=== PATIENT | female | born 1990 | race African-American/Black ===

== ENCOUNTER → 2020-04-03 08:46 | Outpatient (CLI) | payer OTHER, MEDICAID, SELFPAY ==
[2020-04-03 12:57] LABS: Urine Chlamydia NOT DETECTED; Urine N gonorrhoeae NOT DETECTED
== END ==
PROVIDERS: Visit Provider Obstetrics & Gynecology
DX: Z34.81 Encounter for supervision of other normal pregnancy, first trimester (principal); Z11.3 Encounter for screening for infections with a predominantly sexual mode of transmission; Z3A.01 Less than 8 weeks gestation of pregnancy
CPT/HCPCS: 87491; 87591

== ENCOUNTER → 2020-04-26 13:18 | Outpatient (CLI) | payer OTHER, MEDICAID, SELFPAY ==
[2020-04-26 14:20] LABS: Add Manual Diff / Slide Review NO; Basophils Absolute Auto 0 /uL (0-100); Basophils Percent Auto 0.4 % (0-2); Eosinophils Absolute Auto 0 /uL (0-450); Eosinophils Percent Auto 0.7 % (2-4); Hematocrit 27.6 % (36-46); Hemoglobin 8.4 g/dL (12.0-16.0); Lymphocytes Absolute Auto 1100 /uL (1100-4500); Mean Corpuscular HGB Conc 30.6 % (30-36); Mean Corpuscular Hemoglobin 23.4 PG (26-34); Mean Corpuscular Volume 76.5 fL (80-100); Monocytes Absolute Auto 300 /uL (0-900); Monocytes Percent Auto 6.7 % (3-14); Neutrophils Absolute Auto 3600 /uL (1500-7000); Neutrophils Percent Auto 71.2 % (50-75); Platelet Count 200 X10^3/uL (150-400); Red Cell Distribution Width 16.4 % (11.6-14.8)
[2020-04-26 14:25] LABS: Hemoglobin A1C% w Est Avg Glu 5.1 % (4.0-6.0)
[2020-04-26 14:29] LABS: Aspartate Aminotransferase 21 IU/L (14-36); BUN Creatinine Ratio 18.8 (6-22); Blood Urea Nitrogen 13 mg/dL (7-17); Estimated Glomerular Filt Rate > 60.0 mL/min (>60); Uric Acid 3.1 mg/dL (2.5-6.2)
[2020-04-26 14:38] LABS: Appearance Urine UA CLEAR; Bilirubin Urine UA NEGATIVE (NEGATIVE); Color Urine UA YELLOW; Glucose Urine UA NEGATIVE (Negative); Ketones Urine UA NEGATIVE (NEGATIVE); Leukocyte Esterase Urine UA NEGATIVE (NEGATIVE); Nitrite Urine UA NEGATIVE (Negative); Occult Blood Urine UA NEGATIVE (Negative); Protein Urine UA NEGATIVE (Negative); Specific Gravity Urine UA 1.025 (1.000-1.035); Urobilinogen Urine UA 0.2 E.U./dL (0.2)
[2020-04-26 14:42] LABS: pH Urine UA 5.5 (4.5-8.0)
[2020-04-26 15:22] LABS: Creatinine Urine Random 266.5 mg/dL; Protein (Total) Urine Random 6 mg/dL (0-12); Protein Creatinine Ratio Urine 0.02 GRAM/24H
[2020-04-27 04:40] LABS: RPR Screen Non Reactive (Non Reactive)
[2020-04-27 06:36] LABS: Varicella IgG Antibody 782 index (Immune >165)
[2020-04-29 15:35] LABS: Hepatitis B Surface Antigen NEGATIVE s/c (NEGATIVE); Rubella Antibody IgG 19.1 IU/mL (>15)
[2020-04-29 15:54] LABS: HIV 1 & 2 Ab/Ag 4th Gen Combo NEGATIVE (NEGATIVE); Hep C Virus Ab w/Reflex Quant NEGATIVE s/c (NEGATIVE)
== END ==
PROVIDERS: Referring Provider Obstetrics & Gynecology; Visit Provider Obstetrics & Gynecology
DX: Z34.90 Encounter for supervision of normal pregnancy, unspecified, unspecified trimester (principal)
CPT/HCPCS: 36415; 80055; 81003; 82570; 83036; 84156; 84450; 84550; 85025; 86787; 86803; 86850; 86900; 86901; 87086; 87389

== ENCOUNTER → 2020-04-30 08:33 | Outpatient (CLI) | payer OTHER, MEDICAID, SELFPAY ==
[2020-04-30 09:48] LABS: HEMOLYSIS < 15 (0-50); Iron 33 ug/dL (37-170)
[2020-04-30 09:49] LABS: Calcium 9.4 mg/dL (8.4-10.2)
[2020-04-30 09:59] LABS: Percent Iron Saturation 9 % (15-50); Total Iron Binding Capacity 352 ug/dL (265-497); Transferrin 267 mg/dL (206-381)
[2020-04-30 10:04] LABS: Vitamin D 25 Hydroxy (D3) 31.2 ng/mL (30.0-100.0)
[2020-04-30 10:56] LABS: Folate 15.5 ng/mL (2.76-20.0); Vitamin B12 236 pg/mL (239-931)
[2020-05-03 09:09] LABS: Vitamin B1 81.5 nmol/L (66.5-200.0)
== END ==
PROVIDERS: Referring Provider Obstetrics & Gynecology; Visit Provider Obstetrics & Gynecology
DX: Z34.90 Encounter for supervision of normal pregnancy, unspecified, unspecified trimester (principal); Z98.84 Bariatric surgery status
CPT/HCPCS: 36415; 82306; 82310; 82607; 82746; 83021; 83540; 83550; 84425

== ENCOUNTER → 2020-05-06 12:12 | Outpatient (CLI) | payer OTHER, MEDICAID, SELFPAY | PROVIDERS: Visit Provider Obstetrics & Gynecology | DX: Z34.81 Encounter for supervision of other normal pregnancy, first trimester (principal); R31.9 Hematuria, unspecified; Z3A.11 11 weeks gestation of pregnancy | CPT/HCPCS: 87077; 87086 ==

== ENCOUNTER → 2020-06-28 13:57 | Outpatient (CLI) | payer OTHER, MEDICAID, SELFPAY ==
[2020-06-28 16:43] LABS: Add Manual Diff / Slide Review NO; Basophils Absolute Auto 0 /uL (0-100); Basophils Percent Auto 0.4 % (0-2); Eosinophils Absolute Auto 100 /uL (0-450); Eosinophils Percent Auto 0.9 % (2-4); Hematocrit 24.5 % (36-46); Hemoglobin 7.7 g/dL (12.0-16.0); Lymphocytes Absolute Auto 1200 /uL (1100-4500); Lymphocytes Percent Auto 21.7 % (25-40); Mean Corpuscular HGB Conc 31.5 % (30-36); Mean Corpuscular Hemoglobin 23.6 PG (26-34); Monocytes Absolute Auto 300 /uL (0-900); Monocytes Percent Auto 5.8 % (3-14); Neutrophils Absolute Auto 4100 /uL (1500-7000); Neutrophils Percent Auto 71.2 % (50-75); Platelet Count 170 X10^3/uL (150-400); Red Blood Cell Count 3.27 X10^6/uL (4.0-5.2); Red Cell Distribution Width 16.7 % (11.6-14.8); White Blood Cell Count 5.7 X10^3/uL (4.5-11.0)
[2020-06-28 19:41] LABS: Vitamin B12 200 pg/mL (239-931)
[2020-07-02 21:13] LABS: Gest Age on Col Date 19.3 weeks (.); Insulin Dep Diabetes No (.); OSBR Risk 1IN 10000 (.); Results Report (.); Test Results *Screen Negative* (.)
[2020-07-03 13:30] LABS: PDF SEE EMR REFERENCE
== END ==
PROVIDERS: PCP Nurse Practitioner Family; Referring Provider Obstetrics & Gynecology; Visit Provider Obstetrics & Gynecology
DX: Z34.82 Encounter for supervision of other normal pregnancy, second trimester (principal); Z3A.15 15 weeks gestation of pregnancy
CPT/HCPCS: 36415; 82105; 82607; 85025

== ENCOUNTER → 2020-07-03 07:09 | Outpatient (CLI) | payer OTHER, MEDICAID, SELFPAY ==
--- NOTE | 2020-07-03 07:11 | DI.US.S_ITS ---
PROCEDURE: US OB >= 14 WEEKS FETUS INDICATIONS: ANATOMY OUTSIDE/PRIOR DATING DATA: Last menstrual period (LMP): February 14, 2020. LMP-based estimated date of delivery (GAGANDEEP): November 20, 2020. First dating scan (date and location): April 03, 2020 . Estimated date of delivery (GAGANDEEP) from first dating scan: November 18, 2020 . TECHNIQUE: Real-time scanning was performed of the fetus, with image documentation and biometric measurements. Endovaginal scanning: not performed. COMPARISON: [facility], , OB >= 14 WEEKS FETUS, 07/02/2020, 12:56. FINDINGS: General: A single living intrauterine gestation is present. Presentation: vertex Placenta: Placental position is anterior, without previa. Amniotic fluid index: 17.1 cm, normal range is 5-24 cm. heart rate: 139 beats per minute. Maternal cervical canal: 3.4 cm long. Normal lower limit is 2.5 cm. biometrics: Biparietal diameter: 4.9 cm, correlating with 20 weeks and 5 days Head circumference: 18.2 cm, correlating with 20 weeks and 4 days Abdominal circumference: 15.3 cm, correlating with 20 weeks and 4 days Femur length: 3.4 cm, correlating with 20 weeks and 6 days Estimated gestational age from initial scan: not applicable. Composite gestational age from present scan: 20 weeks and 5 days Estimated weight and percentile: 369 [address] which [address] the fetus within the 67th percentile based off gestational age. Measurement variability for biometric dating: +/- 7 days from 14 weeks to 15 weeks 6 days gestation, +/- 10 days from 16 weeks to 21 weeks 6 days gestation, +/- 2 weeks from 22 weeks to 27 weeks 6 days gestation, +/- 3 weeks for 28 weeks gestation or later. weight reference: 4500 g or EFW >90/95% is considered macrosomia or large for gestational age. EFW <10% is small for gestational age. EFW 5% or less is considered intra-uterine growth restriction. Anatomic survey: Neuro: Ventricles are non-dilated at less than 10 mm. Cisterna magna is normal at 3-11 mm. Cerebellum is normal in size and morphology. Nuchal skin fold: Normal at less than 6 mm between 14-21 weeks gestational age. Face: Nose and lips are normal. facial profile not well visualized secondary to positioning during the examination. Spine: No evidence for spina bifida. Heart: 4-chambered heart is present, with normal ventricular outflow tracts. Diaphragm: Diaphragm is intact. Stomach: Left-sided stomach is present. Kidneys: No hydronephrosis. Normal is less than 5 mm in 2nd trimester, less than 7 mm in 3rd trimester. Cord: 3-vessel cord has orthotopic insertion. Bladder: Normal in size. Extremities: All 4 extremities identified. IMPRESSION: 1. Single living intrauterine gestation with an estimated sonographic gestational age of approximately 20 weeks and 5 days. Estimated weight of 369 g which [address] the fetus within the 67th percentile. 2. facial profile not well visualized secondary to lie throughout the examination. Otherwise, normal routine second-trimester anatomic screening survey. Follow-up imaging is recommended to re-evaluate facial profile. Dictated by: Emmett Bates M.D. on 07/03/2020 at 13:44 Approved by: Emmett Bates M.D. on 07/03/2020 at 14:15
== END ==
PROVIDERS: Referring Provider Obstetrics & Gynecology; Visit Provider Obstetrics & Gynecology
DX: Z34.82 Encounter for supervision of other normal pregnancy, second trimester (principal); Z3A.20 20 weeks gestation of pregnancy
CPT/HCPCS: 76811

== ENCOUNTER → 2020-07-12 11:53 | Outpatient (CLI) | payer OTHER, MEDICAID, SELFPAY ==
--- NOTE | 2020-07-12 11:54 | DI.US.S_ITS ---
PROCEDURE: US OB FOLLOW UP INDICATIONS: F/U facial profile not well seen OUTSIDE/PRIOR DATING DATA: Last menstrual period (LMP): 02/14/2020. LMP-based estimated date of delivery (GAGANDEEP): 11/20/2020 . First dating scan (date and location): 04/03/2020 . Estimated date of delivery (GAGANDEEP) from first dating scan: 11/18/2020 . TECHNIQUE: Real-time scanning was performed of the fetus, with image documentation and biometric measurements. Endovaginal scanning: No COMPARISON: [facility], OB >= 14 WEEKS FETUS, 07/03/2020, 7:24. FINDINGS: General: A single living intrauterine gestation is present. Presentation: Vertex. Placenta: Placental position is anterior , without previa. Amniotic fluid index: 12.6 cm, normal range is 5-24 cm. heart rate: 131 beats per minute. Maternal cervical canal: 4.7 cm long. Normal lower limit is 2.5 cm. IMPRESSION: Single living IUP redemonstrated and today's exam demonstrating normal appearance of the facial profile. Dictated by: Nikhil JO Interpreted: Kiran Taylor MD on 07/12/2020 at 13:40 Approved by: Kiran Taylor M.D. on 07/12/2020 at 16:38
== END ==
PROVIDERS: Referring Provider Obstetrics & Gynecology; Visit Provider Obstetrics & Gynecology
DX: Z36.2 Encounter for other antenatal screening follow-up (principal); Z3A.21 21 weeks gestation of pregnancy
CPT/HCPCS: 76816

== ENCOUNTER → 2020-07-18 16:40 | Outpatient (CLI) | payer OTHER, MEDICAID, SELFPAY ==
[2020-07-18 17:05] LABS: Add Manual Diff / Slide Review NO; Basophils Absolute Auto 0 /uL (0-100); Basophils Percent Auto 0.4 % (0-2); Eosinophils Absolute Auto 100 /uL (0-450); Eosinophils Percent Auto 1.1 % (2-4); Hematocrit 23.7 % (36-46); Hemoglobin 7.3 g/dL (12.0-16.0); Lymphocytes Absolute Auto 1500 /uL (1100-4500); Lymphocytes Percent Auto 21.2 % (25-40); Mean Corpuscular HGB Conc 30.9 % (30-36); Mean Corpuscular Hemoglobin 22.5 PG (26-34); Monocytes Absolute Auto 300 /uL (0-900); Monocytes Percent Auto 4.4 % (3-14); Neutrophils Absolute Auto 5300 /uL (1500-7000); Neutrophils Percent Auto 72.9 % (50-75); Platelet Count 171 X10^3/uL (150-400); Red Blood Cell Count 3.24 X10^6/uL (4.0-5.2); Red Cell Distribution Width 17.2 % (11.6-14.8); White Blood Cell Count 7.3 X10^3/uL (4.5-11.0)
[2020-07-18 17:44] LABS: HEMOLYSIS < 15 (0-50); Iron 27 ug/dL (37-170)
[2020-07-18 17:45] LABS: Alanine Aminotransferase 9 IU/L (<35); Albumin 3.5 g/dL (3.5-5.0); Alkaline Phosphatase 69 U/L (38-126); Aspartate Aminotransferase 24 IU/L (14-36); BUN Creatinine Ratio 14.3 (6-22); Bilirubin Total 0.3 mg/dL (0.2-1.3); Blood Urea Nitrogen 8 mg/dL (7-17); Calcium 8.6 mg/dL (8.4-10.2); Carbon Dioxide 25 mmol/L (22-32); Chloride 105 mmol/L (98-107); Estimated Glomerular Filt Rate > 60.0 mL/min (>60); Globulin 3.5 g/dL (1.7-4.1); Glucose 85 mg/dL (70-100); HEMOLYSIS < 15 (0-50); Potassium 3.8 mmol/L (3.4-5.1); Sodium 136 mmol/L (137-145)
[2020-07-18 17:54] LABS: Percent Iron Saturation 7 % (15-50); Total Iron Binding Capacity 402 ug/dL (265-497); Transferrin 320 mg/dL (206-381)
[2020-07-18 18:20] LABS: Ferritin 6 ng/mL (6-137)
== END ==
PROVIDERS: Referring Provider Internal Medicine Hematology & Oncology; Visit Provider Internal Medicine Hematology & Oncology
DX: D50.9 Iron deficiency anemia, unspecified (principal); N92.6 Irregular menstruation, unspecified
CPT/HCPCS: 36415; 80053; 82728; 83540; 83550; 85025

== ENCOUNTER → 2020-08-21 07:49 | Outpatient (CLI) | payer OTHER, MEDICAID, SELFPAY ==
[2020-08-21 09:43] LABS: Hematocrit 28.3 % (36-46); Hemoglobin 8.8 g/dL (12.0-16.0)
[2020-08-21 10:20] LABS: GTT (PREG) 1 Hour PP 50gm Dose 157 mg/dL (76-139)
== END ==
PROVIDERS: Referring Provider Obstetrics & Gynecology; Visit Provider Obstetrics & Gynecology
DX: Z34.82 Encounter for supervision of other normal pregnancy, second trimester (principal); Z3A.23 23 weeks gestation of pregnancy
CPT/HCPCS: 36415; 82950; 85014; 85018

== ENCOUNTER → 2020-09-14 11:26 | Outpatient (CLI) | payer OTHER, MEDICAID, SELFPAY ==
[2020-09-14 11:49] LABS: Add Manual Diff / Slide Review NO; Basophils Absolute Auto 0 /uL (0-100); Basophils Percent Auto 0.4 % (0-2); Eosinophils Absolute Auto 0 /uL (0-450); Eosinophils Percent Auto 0.7 % (2-4); Hematocrit 28.8 % (36-46); Hemoglobin 9.2 g/dL (12.0-16.0); Lymphocytes Absolute Auto 1000 /uL (1100-4500); Lymphocytes Percent Auto 19.5 % (25-40); Mean Corpuscular HGB Conc 32.1 % (30-36); Mean Corpuscular Volume 81.1 fL (80-100); Monocytes Absolute Auto 200 /uL (0-900); Monocytes Percent Auto 4.1 % (3-14); Neutrophils Absolute Auto 3800 /uL (1500-7000); Neutrophils Percent Auto 75.3 % (50-75); Platelet Count 174 X10^3/uL (150-400); Red Blood Cell Count 3.56 X10^6/uL (4.0-5.2); Red Cell Distribution Width 23.2 % (11.6-14.8); White Blood Cell Count 5.1 X10^3/uL (4.5-11.0)
[2020-09-14 11:57] LABS: Chloride 108 mmol/L (98-107); HEMOLYSIS < 15 (0-50)
[2020-09-14 11:59] LABS: Alanine Aminotransferase 11 IU/L (<35); Albumin 3.6 g/dL (3.5-5.0); Albumin Globulin Ratio 1.1 (1.0-2.8); Alkaline Phosphatase 86 U/L (38-126); Aspartate Aminotransferase 23 IU/L (14-36); BUN Creatinine Ratio 10.8 (6-22); Bilirubin Total 0.2 mg/dL (0.2-1.3); Blood Urea Nitrogen 7 mg/dL (7-17); Carbon Dioxide 26 mmol/L (22-32); Estimated Glomerular Filt Rate > 60.0 mL/min (>60); Globulin 3.3 g/dL (1.7-4.1); Glucose 74 mg/dL (70-100); Potassium 3.5 mmol/L (3.4-5.1); Sodium 136 mmol/L (137-145); Total Protein 6.9 g/dL (6.3-8.2)
[2020-09-14 12:08] LABS: HEMOLYSIS < 15 (0-50); Iron 31 ug/dL (37-170)
[2020-09-14 12:18] LABS: Percent Iron Saturation 9 % (15-50); Total Iron Binding Capacity 336 ug/dL (265-497); Transferrin 274 mg/dL (206-381)
[2020-09-14 12:34] LABS: Ferritin 27 ng/mL (6-137)
[2020-09-14 12:46] LABS: Anisocytosis 2+; Polychromasia 1+; Spherocytes 1+
== END ==
PROVIDERS: PCP Family Medicine; Referring Provider Internal Medicine Hematology & Oncology; Visit Provider Internal Medicine Hematology & Oncology
DX: D50.9 Iron deficiency anemia, unspecified (principal)
CPT/HCPCS: 36415; 80053; 82728; 83540; 83550; 85025

== ENCOUNTER → 2020-09-18 10:54 | Outpatient (CLI) | payer OTHER, MEDICAID, SELFPAY ==
--- NOTE | 2020-09-18 12:09 | DIET.PN ---
INITIAL GESTATIONAL DIABETES ASSESSMENT ASSESS:? Ms Aviles is a 29 yof referred for Gestational diabetes. She is . She had bariatric surgery x3 yrs ago, but has not been following any dietary restrictions since her . Admits she does not like water and typically eats whatever she has at home. Generally eats fast food when she is away from home and consumes juice w/ breakfast. She has not been exercising since . She does not currently have a glucometer, but has been trying to get one for 1 month. ? GAGANDEEP:?11/20/20 ? WKS GESTATION:?? 31 wks ?LABS: 1hr 50g: >157 mg/dL ? MEDS: na ? DIET:? B: eggs w/ mcmahon; honey bunches of oats; ? bagel w/ cr chz L: fast food when out; whatever is available D: protein, veg, starch Sn: chips, honey buns, gum Note: craves chicken ? HT:? 65.5 in ? PRE-PREG WT:? 215 lb ? PRE-PREG BMI:??? 35.2 ? CURRENT WT: 264 lb ? TOTAL WT GAIN:?49 lb EXERCISE: dc after getting ; walking/dance fitness prior to NUTRITION DX 1. Altered nutrition related lab values r/t gestational diabetes as evidenced by recent labs (OGGT). INTERVENTION 1. Discussed pathophysiology of gestational diabetes and impact of hormone and nutrition/diet on blood sugar control.? Discussed fed versus non-fed state.? 2. Recommended checking fasting, pre-meal and 1hr post prandial (3x/day).? Discussed goals for glycemic control (<95 FBG, <140 1-hr PP).? 3. Discussed the effect of carbohydrates/protein/fat on blood sugar control.? Stressed importance of consistent carbohydrate intake at each meal and provided instructions for recommended servings/portions of carbohydrates/protein per meal.? Provided pt with educational material. 4. Introduced carbohydrate counting and measuring carbohydrate content via servings sizes and reading nutrition labels.? Provided handouts.? Pt will need further review. 5. Discussed importance of meal timing and not going >3 hours between meals.? Provided sample meal schedule for pt.? Pt agreeable.?? 6. Discussed importance a pre-tasneem vitamin and including food sources of calcium, vitamin D, iron and folic acid for baby and mother?s nutrition support. 7. Discussed caffeine intake. Recommend no more than 200 mg/day (1 cup coffee). 8. Discussed rule of 15 for hypoglycemia. 9. Recommend patient purchase Urine Ketone strips and instructed on use and when to contact provider. 10. Recommended patient continue exercise as appropriate per PCP approval. 11. Patient may need medication management, will follow-up with plan of care at next visit after reviewing glucose results.? MONITOR/EVAL: Will schedule follow up scheduled X 1 week after receiving glucometer. Good compliance expected. Review: carb sources, carb counting, portion size, meal timing, BG log, weight.
== END ==
PROVIDERS: Referring Provider Obstetrics & Gynecology; Visit Provider Obstetrics & Gynecology
DX: O24.419 Gestational diabetes mellitus in pregnancy, unspecified control (principal); Z3A.31 31 weeks gestation of pregnancy; Z98.84 Bariatric surgery status; Z71.3 Dietary counseling and surveillance
CPT/HCPCS: G0108

== ENCOUNTER 2020-09-23 10:24 | Outpatient (CLI) | payer OTHER, MEDICAID, SELFPAY ==
--- NOTE | 2020-09-23 17:59 | PM.OBTRLD ---
Visit Information Visit Information Date of evaluation: 09/23/20 Primary OB Provider: Kalpana Farrell Reason for Evaluation: Yes non-stress test Comments/Additional reasons for admission: Patient sent for NST to evaluate for contractions. Vital Signs Vital Signs: Vital signs stable ON LICENSE OF [facility] Medical History Anxiety ASCUS (atypical squamous cells of undetermined significance) on gynecologic Papanicolaou smear complicating , antepartum (~2005) Excess skin of abdominal wall Heavy menstrual period HPV (human papilloma virus) infection (~2005) Irregular menstrual cycle Morbid obesity Pelvic somatic dysfunction Preeclampsia delivery (~11/20/08) Sacral region somatic dysfunction Sleep apnea Sprain, symphysis pubis Surgical History Anesthesia H/O bariatric surgery (~09/02/17) History of laparoscopic cholecystectomy (~12/19/08) History of primary section (~11/20/08) S/P repeat low transverse (~03/26/16) Family History Mother Diabetes mellitus Hypertension CVA (cerebral vascular accident) Depression Anxiety Fibromyalgia Myocardial infarction Father Alcohol abuse Myocardial infarction Hypertension Grandfather Enlarged heart History of heart disease Grandmother Diabetes mellitus Anxiety Hypertension Grandfather No problems noted. Grandmother Dementia Schizophrenia Mental health disorder Family/Other Cervical cancer Family/Other Breast cancer Sister Depression Mental health disorder Social History marital status: number of children: 4 household members: spouse and children pets and animals: Yes (X 1 dog : pitbull) education level: college (Ass. 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 OB Disposition: home
== END 2020-09-23 11:05 | disposition home or self-care (01) ==
LOC: LABOR 10:57 → OB 10-01 09:37
PROVIDERS: Referring Provider Obstetrics & Gynecology; Visit Provider Obstetrics & Gynecology
DX: O26.893 Other specified pregnancy related conditions, third trimester (principal); R10.30 Lower abdominal pain, unspecified; M54.9 Dorsalgia, unspecified; Z3A.31 31 weeks gestation of pregnancy
CPT/HCPCS: 59025; G0378; G0379

== ENCOUNTER → 2020-10-04 09:17 | Outpatient (CLI) | payer OTHER, MEDICAID, SELFPAY | PROVIDERS: Visit Provider Obstetrics & Gynecology | DX: O26.893 Other specified pregnancy related conditions, third trimester (principal); N36.8 Other specified disorders of urethra; R30.0 Dysuria; Z3A.33 33 weeks gestation of pregnancy | CPT/HCPCS: 87086 ==

== ENCOUNTER 2020-10-06 11:18 | Outpatient (CLI) | payer OTHER, MEDICAID, SELFPAY ==
--- NOTE | 2020-10-06 12:15 | PM.OBTRLD ---
Visit Information Visit Information Date of evaluation: 10/06/20 Primary OB Provider: Kalpana Farrell On-call OB Provider: Alicja Buenrostro Reason for Evaluation: Yes pre-term labor Comments/Additional reasons for admission: Patient is a 29-year-old 3 para 2 at 33 weeks gestation who presents with muscle cramping of her abdomen. She is unsure if these are contractions. She is being treated for a urinary tract infection. No fever or chills. No back pain. She feels a charley horse in the right or left lower quadrant. Vital Signs Vital Signs: Afebrile [facility] Medical History Anxiety ASCUS (atypical squamous cells of undetermined significance) on gynecologic Papanicolaou smear complicating , antepartum (~2005) Excess skin of abdominal wall Heavy menstrual period HPV (human papilloma virus) infection (~2005) Irregular menstrual cycle Morbid obesity Pelvic somatic dysfunction Preeclampsia delivery (~11/20/08) Sacral region somatic dysfunction Sleep apnea Sprain, symphysis pubis Surgical History Anesthesia H/O bariatric surgery (~09/02/17) History of laparoscopic cholecystectomy (~12/19/08) History of primary section (~11/20/08) S/P repeat low transverse (~03/26/16) Family History Mother Diabetes mellitus Hypertension CVA (cerebral vascular accident) Depression Anxiety Fibromyalgia Myocardial infarction Father Alcohol abuse Myocardial infarction Hypertension Grandfather Enlarged heart History of heart disease Grandmother Diabetes mellitus Anxiety Hypertension Grandfather No problems noted. Grandmother Dementia Schizophrenia Mental health disorder Family/Other Cervical cancer Family/Other Breast cancer Sister Depression Mental health disorder Social History marital status: number of children: 4 household members: spouse and children pets and animals: Yes (X 1 dog : pitbull) education level: college (Ass. 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 Gravid. No tenderness to palpation. Evaluation Evaluation Baseline heart rate: 130 Variability: Moderate (11-25) monitor accelerations: Present monitor decelerations: Absent Contraction Frequency (minutes): 20 Uterine Contraction Intensity: Mild Category of Tracing: Reactive Diagnosis, Plan/Disposition Plan/Disposition Plan: Assessment: 29-year-old 3 para 2 at 33 weeks gestation not in labor Currently being treated for urinary tract infection, no signs of pyelonephritis Plan: Discharged home Follow-up as scheduled with fellow Signs and symptoms of labor or pyelonephritis reviewed OB Disposition: home
== END 2020-10-06 12:00 | disposition home or self-care (01) ==
LOC: LABOR 11:29 → OB 10-07 15:29
PROVIDERS: Referring Provider Obstetrics & Gynecology; Visit Provider Obstetrics & Gynecology
DX: O23.43 Unspecified infection of urinary tract in pregnancy, third trimester (principal); R10.30 Lower abdominal pain, unspecified; Z3A.33 33 weeks gestation of pregnancy
CPT/HCPCS: 59025; G0378; G0379

== ENCOUNTER → 2020-10-14 16:20 | Oncology outpatient (ONC) | payer OTHER, MEDICAID, SELFPAY ==
[2020-07-18 15:53] VITALS: BP 132/71; PULSE 83; RESP 18; TEMP 36.6; O2SAT 100
--- NOTE | 2020-07-18 15:57 | ONC.CONS ---
History of Present Illness - Data of Consult Patient: new to practice Consult date: 07/18/20 Requesting Physician: Kalpana Rowley Primary Care Provider: Kalpana Rowley - Consult Narrative Reason for consult: Iron deficiency anemia Narrative: Chandu Aviles is a 29 year old female. Patient said that she has been diagnosed with iron deficiency anemia since she was a teenager. Presumably the iron deficiency anemia is caused by irregular and heavy menstrual periods. Patient had 2 previous pregnancies both of which were complicated with anemia. However, patient said that no intravenous iron infusion were required and no blood transfusion were done. During the second , patient had preeclampsia. Before the current and after her 2nd , patient underwent bariatric surgery for weight control on 09/02/2017. She is now about 20 weeks of gestation of her current . She was noted to have declining hemoglobin and hematocrit level. On 04/26/2020, hemoglobin 8.4. On 06/28/2020, hemoglobin 7.7. MCV decreased slightly, 76.5 and 75 respectively. Iron studies from 04/30/2020 showed iron 33, iron saturation 9%. Patient said that she has not been very consistent for taking oral iron supplementation. One of the problems is difficulty swallowing pills. Currently she is also taking aspirin. Patient has symptoms of craving for corn starch. She denies shortness of breath or chest pain. She denies abdominal pain, she denies diarrhea or constipation. She denies any bleeding events. CC: Esperanza Toney MD Home Medications and Allergies Home Medications Medication Instructions Recorded Confirmed Type prenat.vits,lulu,[id number] 1 tab PO DAILY 03/27/20 07/18/20 History ondansetron 4 mg disintegrating 4 mg PO Q8H PRN #30 tab 05/29/20 07/18/20 Rx tablet aspirin 81 mg PO DAILY 07/18/20 07/18/20 History diphenhydramine HCl [Unisom 50 mg PO DAILY 07/18/20 07/18/20 History SleepGels] pyridoxine (vitamin B6) [Vitamin 100 mg PO DAILY 07/18/20 07/18/20 History B-6] Allergies Allergy/AdvReac Type Severity Reaction Status Date / Time No Known Drug Allergies Allergy Verified 06/28/20 13:39 Medical History - Medical, Surgical, Family History Medical History: Medical History (Last Updated 05/01/20 @ 20:55 by Josselin Singh) Anxiety ASCUS (atypical squamous cells of undetermined significance) on gynecologic Papanicolaou smear complicating , antepartum Onset Date: ~2005 Excess skin of abdominal wall Heavy menstrual period HPV (human papilloma virus) infection Onset Date: ~2005 Irregular menstrual cycle Morbid obesity Preeclampsia delivery Onset Date: ~11/20/08 Sleep apnea Surgical History: Surgical History (Last Updated 05/01/20 @ 20:55 by Josselin Singh) Anesthesia H/O bariatric surgery Onset Date: ~09/02/17 History of laparoscopic cholecystectomy Onset Date: ~12/19/08 History of primary section Onset Date: ~11/20/08 S/P repeat low transverse Onset Date: ~03/26/16 Family History: Family History (Last Updated 05/01/20 @ 20:58 by Josselin Singh) Mother Diabetes mellitus Hypertension CVA (cerebral vascular accident) Depression Anxiety Fibromyalgia Myocardial infarction Father Alcohol abuse Myocardial infarction Hypertension Grandfather Enlarged heart History of heart disease Grandmother Diabetes mellitus Anxiety Hypertension Grandfather No problems noted. Grandmother Dementia Schizophrenia Mental health disorder Family/Other Cervical cancer Family/Other Breast cancer Sister Depression Mental health disorder - Social History Smoking Status: Never smoker Review of Systems - Patient Self-Reported Symptoms SR Skin issues: Hair loss or scalp prob SR Gastrointestinal issues: Heartburn SR Genitourinary issues: Frequent urination All systems PM: reviewed and no additional remarkable complaints except as stated Exam Vital signs: Vital Signs Temp Pulse Resp BP Pulse Ox 07/18/20 15:53 98 F 83 18 132/71 100 Intake and Output 07/17/20 07/18/20 07/18/20 23:59 07:59 15:59 Other: Weight 117 kg Patient Weight 07/18/20 23:59 Weight 117 kg - Constitutional positive no acute distress, positive obese, positive cooperative - Routine HEENT Exam Head: Present: normocephalic, atraumatic Eye: Present: EOMI, PERRL, normal accommodation. Absent: conjunctival icterus ENT: Present: mucous membranes moist - Routine Neck Exam Present: supple. Absent: lymphadenopathy, thyromegaly - Routine Chest/Breast/Axilla Exam Axillae: Absent: lymphadenopathy - Routine Respiratory Exam Present: Clear to auscultation bilaterally. Absent: wheezes - Routine Cardiovascular Exam Present: RRR, S1, S2. Absent: murmur, gallop, rubs - Routine Abdominal Exam Present: soft. Absent: tenderness - Routine Extremities Exam Absent: edema - Routine Neurological Exam Present: alert, oriented X3, CN II-XII intact. Absent: sensory deficit, motor deficit - Routine Psychiatric Exam Present: normal affect Results - Labs Reviewed. See HPI Assessment and Plan (1) Iron deficiency anemia 29-year-old woman now about 20 weeks of gestation was referred here by Doctor Freedom for evaluation of iron deficiency anemia. Patient endorses history of chronic iron deficiency anemia since teenager presumably due to blood loss via menstrual cycles. The current is her third . Her previous 2 pregnancies were complicated with anemia but did not require iron infusion or blood transfusion. Patient said that after the second , she underwent bariatric surgery for weight control in 2016. During her current , in late 04/2020, she was found to have severe anemia with hemoglobin level 7.7, and iron saturation 9%. I talked with the patient that I will repeat a set of labs including CBC and CMP and iron panels and ferritin. Patient was having difficulty swallowing pills. Given her history of bariatric surgery after her second , I am concerned about absorption of oral iron supplementation. Therefore I recommended intravenous iron supplementation. Patient voiced understanding. Plan: CBC, CMP, Ferritin, Iron panel Venofer 200 mg iv weekly x 5, starting 07/25/2020 RTC in 2 months, CBC, CMP, Ferritin, Iron panel
[2020-07-24] MEDS: IRON SUCROSE 200 MG in SODIUM CHLORIDE 0.9% 100 ML 220 ML IV (14:52)
[2020-07-24 15:04] VITALS: BP 128/73; PULSE 97; RESP 18; TEMP 36.9; O2SAT 98
--- NOTE | 2020-07-24 15:47 | PC.NURSE ---
Iron infusion: Pt tolerated infusion w/o difficulty. Denies chest pain and SOB. RR equal and unlabored. No s/s of acute distress noted, speech clear. S.O at chair side with pt during infusion.
[2020-07-31 14:46] VITALS: BP 134/77; PULSE 89; RESP 18; TEMP 36.7; O2SAT 100
[2020-07-31] MEDS: IRON SUCROSE 200 MG in SODIUM CHLORIDE 0.9% 100 ML 220 ML IV (14:56)
[2020-08-07 14:48] VITALS: BP 131/65; PULSE 85; RESP 16; TEMP 36.6; O2SAT 99
[2020-08-07] MEDS: IRON SUCROSE 200 MG in SODIUM CHLORIDE 0.9% 100 ML 220 ML IV (16:12)
[2020-08-09 16:28] VITALS: BP 112/59; PULSE 82; RESP 16; O2SAT 100
[2020-08-09] MEDS: LACTATED RINGERS 2,000 ML 1000 ML IV (16:56)
[2020-08-09 19:02] VITALS: BP 120/73; PULSE 77; RESP 16; O2SAT 100
[2020-08-14 14:39] VITALS: BP 125/67; PULSE 78; RESP 18; TEMP 37.1; O2SAT 100
[2020-08-14] MEDS: IRON SUCROSE 200 MG in SODIUM CHLORIDE 0.9% 100 ML 220 ML IV (14:39)
[2020-08-21] MEDS: IRON SUCROSE 200 MG in SODIUM CHLORIDE 0.9% 100 ML 220 ML IV (14:53)
[2020-09-16 11:47] VITALS: BP 136/65; PULSE 79; RESP 16; TEMP 35.9; O2SAT 100
--- NOTE | 2020-09-16 11:50 | P.PNONC_ITS ---
PN -Subjective Interval history: Patient completed 5 Venofer infusions from 07/24/2020 to 08/21/2020. Overall she has tolerated the iron infusion very well. However she does report that after the last infusion on 08/21/2020, patient has experienced whole-body itching without visible rashes. Patient did not take any anti itching medications. She said that the itching eventually resolved by itself. Patient did report that during the iron infusion, patient had a couple of episodes of diarrhea. - Patient Self-Reported Symptoms SR Skin issues: Hair loss or scalp prob SR Gastrointestinal issues: Heartburn SR Genitourinary issues: Frequent urination - Additional ROS All systems PM: reviewed and no additional remarkable complaints except as stated Home Medications and Allergies Home Medications Medication Instructions Recorded Confirmed Type prenat.vits,lulu,[id number]-[id number] 1 tab PO DAILY 03/27/20 09/16/20 History ondansetron 4 mg disintegrating 4 mg PO Q8H PRN #30 tab 05/29/20 09/16/20 Rx tablet aspirin 81 mg PO DAILY 07/18/20 09/16/20 History diphenhydramine HCl [Unisom 50 mg PO DAILY 07/18/20 09/16/20 History SleepGels] pyridoxine (vitamin B6) [Vitamin 100 mg PO DAILY 07/18/20 09/16/20 History B-6] lancets #120 ea 08/27/20 09/16/20 Rx blood sugar diagnostic #100 ea 09/09/20 09/16/20 Rx blood-glucose meter #1 ea 09/09/20 09/16/20 Rx blood-glucose meter #1 ea 09/09/20 09/16/20 Rx lancets #100 ea 09/09/20 09/16/20 Rx Allergies Allergy/AdvReac Type Severity Reaction Status Date / Time No Known Drug Allergies Allergy Verified 08/21/20 11:26 Exam Vital signs: 09/16/20 12:07 Last Vital Signs Temp 96.6 F L 09/16/20 11:47 Pulse 79 09/16/20 11:47 Resp 16 09/16/20 11:47 BP 136/65 09/16/20 11:47 Pulse Ox 100 09/16/20 11:47 - Constitutional positive no acute distress, negative moderate distress, positive obese, positive cooperative - Routine HEENT Exam Head: Present: normocephalic, atraumatic Eye: Present: EOMI, PERRL - Routine Respiratory Exam Absent: accessory muscle use - Routine Neurological Exam Present: alert, oriented X3, CN II-XII intact. Absent: sensory deficit, motor deficit - Routine Psychiatric Exam Present: normal affect Results - Labs Lab results from 09/14/2020 WBC 5.1, hemoglobin 9.2, hematocrit 28.8, MCV 81.1. Sodium 136, potassium 3.5, chloride 108, BUN 7, creatinine 0.65, glucose 74 Calcium 9.0, iron 31, TIBC 336, iron saturation 9%, transferrin 274, ferritin 27, total bilirubin 0.2, AST 23, ALT 11, alk-phos 86, total protein 6.9, albumin 3.6. Assessment and Plan (1) Iron deficiency anemia 29-year-old woman now about 20 weeks of gestation was referred here by Doctor [place] for evaluation of iron deficiency anemia. Patient endorses history of chronic iron deficiency anemia since teenager presumably due to blood loss via menstrual cycles. The current is her third . Her previous 2 pregnancies were complicated with anemia but did not require iron infusion or blood transfusion. Patient said that after the second , she underwent bariatric surgery for weight control in 2016. During her current , in late 04/2020, she was found to have severe anemia with hemoglobin level 7.7, and iron saturation 9%. I talked with the patient that I will repeat a set of labs including CBC and CMP and iron panels and ferritin. Patient was having difficulty swallowing pills. From July to August, patient received 5 infusions of Venofer. Patient presents here today for scheduled follow-up visit. During the last iron infusion, patient developed whole-body itching. I explained to the patient that the itching probably is not related to the iron infusion. I pointed out to her that I would expect that the iron related allergic reactions happen earlier rather than after 5 infusions. The could be some other etiologies including new medications or external soap etc.. But good news is the symptoms have resolved. Then I reviewed the laboratory test results with the patient. The MCV has improved and normalized. The hemoglobin level has not normalized yet. The iron panels showed that the ferritin level has improved to 27 from previous 6. The iron saturation is still low at 9%. Explained to the patient that now she has a refilled iron storage and the iron is being rapidly used for production of red blood cells. I recommended that we continue monthly monitoring. If the ferritin level begins to decrease, I would recommend that we give iron infusion prophylactically. Patient voiced understanding. Plan: RTC in 1 month, CBC, CMP, Ferritin, Iron panel
[2020-10-12 10:59] LABS: Add Manual Diff / Slide Review NO; Basophils Absolute Auto 0 /uL (0-100); Basophils Percent Auto 0.2 % (0-2); Eosinophils Absolute Auto 0 /uL (0-450); Eosinophils Percent Auto 0.5 % (2-4); Hematocrit 29.8 % (36-46); Hemoglobin 9.6 g/dL (12.0-16.0); Lymphocytes Absolute Auto 900 /uL (1100-4500); Lymphocytes Percent Auto 14.5 % (25-40); Mean Corpuscular HGB Conc 32.2 % (30-36); Mean Corpuscular Hemoglobin 26.1 PG (26-34); Mean Corpuscular Volume 81.2 fL (80-100); Monocytes Absolute Auto 200 /uL (0-900); Monocytes Percent Auto 3.7 % (3-14); Neutrophils Absolute Auto 5200 /uL (1500-7000); Neutrophils Percent Auto 81.1 % (50-75); Platelet Count 180 X10^3/uL (150-400); Red Blood Cell Count 3.67 X10^6/uL (4.0-5.2); Red Cell Distribution Width 19.3 % (11.6-14.8); White Blood Cell Count 6.4 X10^3/uL (4.5-11.0)
[2020-10-12 11:08] LABS: Alanine Aminotransferase 18 IU/L (<35); Albumin 3.5 g/dL (3.5-5.0); Albumin Globulin Ratio 1.1 (1.0-2.8); Alkaline Phosphatase 122 U/L (38-126); Aspartate Aminotransferase 28 IU/L (14-36); BUN Creatinine Ratio 18.6 (6-22); Bilirubin Total 0.1 mg/dL (0.2-1.3); Blood Urea Nitrogen 11 mg/dL (7-17); Calcium 8.5 mg/dL (8.4-10.2); Carbon Dioxide 26 mmol/L (22-32); Chloride 108 mmol/L (98-107); Estimated Glomerular Filt Rate > 60.0 mL/min (>60); Globulin 3.2 g/dL (1.7-4.1); Glucose 127 mg/dL (70-100); HEMOLYSIS < 15 (0-50); Sodium 137 mmol/L (137-145); Total Protein 6.7 g/dL (6.3-8.2)
[2020-10-12 11:17] LABS: HEMOLYSIS < 15 (0-50); Iron 41 ug/dL (37-170)
[2020-10-12 11:28] LABS: Percent Iron Saturation 11 % (15-50); Total Iron Binding Capacity 365 ug/dL (265-497); Transferrin 295 mg/dL (206-381)
[2020-10-12 11:42] LABS: Ferritin 12 ng/mL (6-137)
--- NOTE | 2020-10-14 16:42 | ONC.PN ---
PN -Subjective Interval history: Chandu is a 29 year old AA. She is now in her 3rd . Her due date is Nov 14, 2020 per patient. She was noted to have declining hemoglobin and hematocrit level. On 04/26/2020, hemoglobin 8.4. On 06/28/2020, hemoglobin 7.7. MCV decreased slightly, 76.5 and 75 respectively. Iron studies from 04/30/2020 showed iron 33, iron saturation 9%. Patient completed 5 Venofer infusions from 07/24/2020 to 08/21/2020. Today, she presents for scheduled follow-up visit. Overall she has been doing well. She is complaining lots of abdominal cramps likely related to contraction. No fever and no chills. No nausea and no vomiting. No diarrhea and no constipation. She was diagnosed with iron deficiency anemia when she was a teenager. Presumably the iron deficiency anemia is caused by irregular and heavy menstrual periods. Patient had 2 previous pregnancies both of which were complicated with anemia. However, patient said that no intravenous iron infusion were required and no blood transfusion were done. During the second , patient had preeclampsia. After her 2nd and before the current , she underwent bariatric surgery for weight control on 09/02/2017. - Patient Self-Reported Symptoms SR Skin issues: Skin rash or itching SR Gastrointestinal issues: Heartburn SR Genitourinary issues: Frequent urination SR Musculoskeletal issues: Back or neck pain - Additional ROS All systems PM: reviewed and no additional remarkable complaints except as stated Home Medications and Allergies Home Medications Medication Instructions Recorded Confirmed Type prenat.vits,lulu,tsg-bjvl-dhejl 1 tab PO DAILY 03/27/20 09/16/20 History aspirin 81 mg PO DAILY 07/18/20 09/16/20 History diphenhydramine HCl [Unisom 50 mg PO DAILY 07/18/20 09/16/20 History SleepGels] pyridoxine (vitamin B6) [Vitamin 100 mg PO DAILY 07/18/20 09/16/20 History B-6] Disability Parking Placard See Rx Instructions .ROUTE 09/18/20 Rx -Temporary .COMPLEX #1 ea blood-glucose meter #1 ea 09/18/20 Rx lancets 30 gauge and blood glucose #100 ea 09/18/20 Rx strips combo pack ondansetron 4 mg disintegrating 4 mg PO Q8H PRN #30 tab 10/04/20 Rx tablet ferrous sulfate 325 mg PO DAILY #100 tab 10/14/20 Rx Allergies Allergy/AdvReac Type Severity Reaction Status Date / Time No Known Drug Allergies Allergy Verified 08/21/20 11:26 Exam Vital signs: 10/14/20 21:13 Last Vital Signs Temp 96.6 F L 09/16/20 11:47 Pulse 79 09/16/20 11:47 Resp 16 09/16/20 11:47 BP 136/65 09/16/20 11:47 Pulse Ox 100 09/16/20 11:47 - Constitutional positive no acute distress, positive morbidly obese, positive cooperative - Routine HEENT Exam Head: Present: normocephalic, atraumatic Eye: Present: EOMI, PERRL, normal accommodation. Absent: conjunctival icterus - Routine Neck Exam Present: supple. Absent: lymphadenopathy, thyromegaly - Routine Chest/Breast/Axilla Exam Axillae: Absent: lymphadenopathy - Routine Respiratory Exam Present: Clear to auscultation bilaterally, accessory muscle use. Absent: decreased breath sounds, prolonged expiratory phase, wheezes - Routine Cardiovascular Exam Present: RRR, S1, S2. Absent: murmur, gallop, rubs - Routine Abdominal Exam Present: distended (. ) - Routine Extremities Exam Absent: edema - Routine Neurological Exam Present: alert, oriented X3, CN II-XII intact. Absent: sensory deficit, motor deficit - Routine Psychiatric Exam Present: normal affect Results - Labs Laboratory Last Values WBC 6.4 X10^3/uL (4.5-11.0) 10/12/20 10:47 RBC 3.67 X10^6/uL (4.0-5.2) L 10/12/20 10:47 Hgb 9.6 g/dL (12.0-16.0) L 10/12/20 10:47 Hct 29.8 % (36-46) L 10/12/20 10:47 MCV 81.2 fL (80-100) 10/12/20 10:47 MCH 26.1 PG (26-34) 10/12/20 10:47 MCHC 32.2 % (30-36) 10/12/20 10:47 RDW 19.3 % (11.6-14.8) H 10/12/20 10:47 Plt Count 180 X10^3/uL (150-400) 10/12/20 10:47 Neut % (Auto) 81.1 % (50-75) H 10/12/20 10:47 Lymph % (Auto) 14.5 % (25-40) L 10/12/20 10:47 [place] % (Auto) 3.7 % (3-14) 10/12/20 10:47 Eos % (Auto) 0.5 % (2-4) L 10/12/20 10:47 Baso % (Auto) 0.2 % (0-2) 10/12/20 10:47 Neut # (Auto) 5200 /uL (4795-7789) 10/12/20 10:47 Lymph # (Auto) 900 /uL (0650-3641) L 10/12/20 10:47 [place] # (Auto) 200 /uL (0-900) 10/12/20 10:47 Eos # (Auto) 0 /uL (0-450) 10/12/20 10:47 Baso # (Auto) 0 /uL (0-100) 10/12/20 10:47 Sodium 137 mmol/L (137-145) 10/12/20 10:47 Potassium 4.0 mmol/L (3.4-5.1) 10/12/20 10:47 Chloride 108 mmol/L (98-107) H 10/12/20 10:47 Carbon Dioxide 26 mmol/L (22-32) 10/12/20 10:47 BUN 11 mg/dL (7-17) 10/12/20 10:47 Creatinine 0.59 mg/dL (0.52-1.04) 10/12/20 10:47 Estimated GFR > 60.0 mL/min (>60) 10/12/20 10:47 BUN/Creatinine Ratio 18.6 (6-22) 10/12/20 10:47 Glucose 127 mg/dL (70-100) H 10/12/20 10:47 Calcium 8.5 mg/dL (8.4-10.2) 10/12/20 10:47 Iron 41 ug/dL (37-170) 10/12/20 10:47 TIBC 365 ug/dL (265-497) 10/12/20 10:47 % Saturation 11 % (15-50) L 10/12/20 10:47 Transferrin 295 mg/dL (206-381) 10/12/20 10:47 Ferritin 12 ng/mL (6-137) 10/12/20 10:47 Total Bilirubin 0.1 mg/dL (0.2-1.3) L 10/12/20 10:47 AST 28 IU/L (14-36) 10/12/20 10:47 ALT 18 IU/L (<35) 10/12/20 10:47 Alkaline Phosphatase 122 U/L (38-126) 10/12/20 10:47 Total Protein 6.7 g/dL (6.3-8.2) 10/12/20 10:47 Albumin 3.5 g/dL (3.5-5.0) 10/12/20 10:47 Globulin 3.2 g/dL (1.7-4.1) 10/12/20 10:47 Albumin/Globulin Ratio 1.1 (1.0-2.8) 10/12/20 10:47 Assessment and Plan (1) Iron deficiency anemia 29-year-old woman now at 34 weeks gestation who presents for scheduled follow up due to iron deficiency anemia. She has had iron deficiency anemia since teenager presumably due to irregular and heavy menstrual periods. She had 2 pregnancies before both of which were completed with anemia. She has history of obesity and underwent bariatric surgery after 2nd . During the current 3rd , she developed severe iron deficiency anemia. She underwent Venofer 200 mg weekly x5 from 07/24/2020 to 08/21/2020. Today, I reviewed the laboratory test results with the patient. The hemoglobin level continues to improve. However the iron panel showed decreasing storage status as shown by decreasing ferritin level and decreasing iron saturation. They are within the low normal range. I talked with her that with time, we may see continued depletion of the iron storage and eventually patient will develop anemia. I think it is worth trying oral iron supplements and see if that can help the iron deficiency status. I recommended that patient try to take the oral irons 1# once a day together with 1 cup of orange juice. Patient voiced understanding. Patient may deliver any time during the next 1 month, I talked with her that I will see her about after the delivery. She voiced understanding. Plan: RTC in 1 month, CBC, CMP, Ferritin, Iron panel
== END ==
PROVIDERS: Referring Provider Obstetrics & Gynecology; Visit Provider Internal Medicine Hematology & Oncology
DX: O99.013 Anemia complicating pregnancy, third trimester (principal); D50.9 Iron deficiency anemia, unspecified; O99.213 Obesity complicating pregnancy, third trimester; E66.01 Morbid (severe) obesity due to excess calories; Z3A.33 33 weeks gestation of pregnancy; Z98.84 Bariatric surgery status
CPT/HCPCS: 36415; 80053; 82728; 83540; 83550; 85025; 96360; 96361; 96365; 96366; 99204; 99214; J1756

== ENCOUNTER → 2020-10-28 10:16 | Outpatient (CLI) | payer OTHER, MEDICAID, SELFPAY ==
[2020-10-28 12:14] LABS: RBC Urine None Seen (0-5/HPF)
[2020-10-28 12:45] LABS: Appearance Urine UA CLOUDY; Bilirubin Urine UA NEGATIVE (NEGATIVE); Color Urine UA YELLOW; Glucose Urine UA NEGATIVE (Negative); Ketones Urine UA TRACE (NEGATIVE); Leukocyte Esterase Urine UA NEGATIVE (NEGATIVE); Nitrite Urine UA NEGATIVE (Negative); Occult Blood Urine UA NEGATIVE (Negative); Protein Urine UA 1+ (Negative); Specific Gravity Urine UA 1.025 (1.000-1.035); Urobilinogen Urine UA 0.2 E.U./dL (0.2)
[2020-10-28 13:04] LABS: pH Urine UA 5.5 (4.5-8.0)
[2020-10-28 13:05] LABS: Amorphous Sediment Urine 3+; Bacteria Urine Occasional (0-1); Mucus Urine 1+ (Negative); Squamous Epithelial Cell Urine 1-5 /HPF (0-5/HPF); WBC Urine 0-1/HPF (0-5/HPF)
[2020-10-29 13:49] LABS: Strep Grp B PCR NEG for Grp B Strep
== END ==
PROVIDERS: Visit Provider Obstetrics & Gynecology
DX: Z34.83 Encounter for supervision of other normal pregnancy, third trimester (principal); R39.89 Other symptoms and signs involving the genitourinary system; Z3A.36 36 weeks gestation of pregnancy
CPT/HCPCS: 81001; 87086; 87653

== ENCOUNTER 2020-11-05 10:36 | Outpatient (CLI) | payer OTHER, MEDICAID, SELFPAY ==
--- NOTE | 2020-11-05 12:55 | PM.OBTRLD ---
Visit Information Visit Information Date of evaluation: 11/05/20 Primary OB Provider: Kalpana Farrell Reason for Evaluation: Yes non-stress test Comments/Additional reasons for admission: Patient is a 29-year-old para 2 with a history of 2 prior sections at 35 and 6, unclear if jinny or having musculoskeletal pains was sent for NST. No other complaints. Vital Signs Vital Signs: Normotensive [facility] Medical History Anxiety ASCUS (atypical squamous cells of undetermined significance) on gynecologic Papanicolaou smear complicating , antepartum (~2005) Excess skin of abdominal wall Heavy menstrual period HPV (human papilloma virus) infection (~2005) Irregular menstrual cycle Morbid obesity Pelvic somatic dysfunction Preeclampsia delivery (~11/20/08) Sacral region somatic dysfunction Sleep apnea Sprain, symphysis pubis Surgical History Anesthesia H/O bariatric surgery (~09/02/17) History of laparoscopic cholecystectomy (~12/19/08) History of primary section (~11/20/08) S/P repeat low transverse (~03/26/16) Family History Mother Diabetes mellitus Hypertension CVA (cerebral vascular accident) Depression Anxiety Fibromyalgia Myocardial infarction Father Alcohol abuse Myocardial infarction Hypertension Grandfather Enlarged heart History of heart disease Grandmother Diabetes mellitus Anxiety Hypertension Grandfather No problems noted. Grandmother Dementia Schizophrenia Mental health disorder Family/Other Cervical cancer Family/Other Breast cancer Sister Depression Mental health disorder Social History marital status: number of children: 4 household members: spouse and children pets and animals: Yes (X 1 dog : pitbull) education level: college (Ass. Degree enrolled at [employer]. 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 Scheduled for repeat section and bilateral salpingectomy next week. OB Disposition: home
== END 2020-11-05 11:10 | disposition home or self-care (01) ==
LOC: LABOR 11:31 → OB 11-06 08:23
PROVIDERS: Referring Provider Obstetrics & Gynecology; Visit Provider Obstetrics & Gynecology
DX: O99.013 Anemia complicating pregnancy, third trimester (principal); Z3A.37 37 weeks gestation of pregnancy
CPT/HCPCS: 59025; G0378; G0379

== ENCOUNTER 2020-11-07 11:32 | Inpatient (IN) | payer OTHER, MEDICAID, SELFPAY ==
[2020-11-07] VITALS (8 sets, daily range): BP systolic 96–136; BP diastolic 68–88; PULSE 56–61; RESP 10–16; TEMP 36.2–36.6; O2SAT 99–100
--- NOTE | 2020-11-07 | PATH_ITS ---
[facility] Accession Number: [id number] . 01 Material submitted: . fallopian tube - BILATERAL FALLOPIAN TUBES . 02 Diagnosis: Bilateral Fallopian Tubes, Bilateral Tubal Ligation: Complete cross-sections of portions of fallopian tube x2. Negative for atypia or malignancy. MRV 11/11/2020 0942 Local . 02 Electronically signed: . Noemi Payne MD, Pathologist NPI- [id number] . 01 Gross description: . Received in one formalin-filled container, labeled with the patient's name and labeled bilateral fallopian tubes, are two fimbriated, cylindrical-shaped portions of tissue. The first measures 8.0 x 0.8 x 0.8 cm. Four field representatives director sections are submitted in cassette A1. The second piece measures 6.0 x 0.9 x 0.9 cm. Four field representatives director sections are submitted in cassette A2. ([id number]) /[facility] 11/08/2020 0221 Local . 02 Pathologist provided ICD-10: Z30.2 . 02 CPT . 868894 Performed at: 01 [facility] [address], [place], [place] [id number] MD Sigifredo Toro MD Phone: [phone] Performed at: [address] [facility] [address] [place], [place] [id number] MD Omaira Sung MD Phone: [phone]
[2020-11-07 12:30] LABS: Add Manual Diff / Slide Review NO; Basophils Absolute Auto 0 /uL (0-100); Basophils Percent Auto 0.3 % (0-2); Eosinophils Absolute Auto 0 /uL (0-450); Eosinophils Percent Auto 0.4 % (2-4); Hematocrit 26.8 % (36-46); Hemoglobin 8.7 g/dL (12.0-16.0); Lymphocytes Absolute Auto 900 /uL (1100-4500); Mean Corpuscular HGB Conc 32.4 % (30-36); Mean Corpuscular Hemoglobin 25.9 PG (26-34); Monocytes Absolute Auto 300 /uL (0-900); Monocytes Percent Auto 5.1 % (3-14); Neutrophils Absolute Auto 4900 /uL (1500-7000); Neutrophils Percent Auto 79.2 % (50-75); Platelet Count 162 X10^3/uL (150-400); Red Blood Cell Count 3.35 X10^6/uL (4.0-5.2); Red Cell Distribution Width 16.8 % (11.6-14.8); White Blood Cell Count 6.2 X10^3/uL (4.5-11.0)
[2020-11-07 12:49] LABS: Creatinine Urine Random 326.6 mg/dL; Protein (Total) Urine Random 17 mg/dL (0-12); Protein Creatinine Ratio Urine 0.05 GRAM/24H
[2020-11-07 12:51] LABS: Prothrombin Time 11.5 SECONDS (10.1-12.7)
[2020-11-07 12:56] LABS: Alanine Aminotransferase 23 IU/L (<35); Albumin 3.3 g/dL (3.5-5.0); Albumin Globulin Ratio 1.1 (1.0-2.8); Alkaline Phosphatase 138 U/L (38-126); Aspartate Aminotransferase 33 IU/L (14-36); BUN Creatinine Ratio 15.8 (6-22); Bilirubin Total 0.2 mg/dL (0.2-1.3); Blood Urea Nitrogen 9 mg/dL (7-17); Calcium 8.4 mg/dL (8.4-10.2); Carbon Dioxide 24 mmol/L (22-32); Chloride 106 mmol/L (98-107); Estimated Glomerular Filt Rate > 60.0 mL/min (>60); Globulin 3.1 g/dL (1.7-4.1); Glucose 78 mg/dL (70-100); HEMOLYSIS < 15 (0-50); Lactate Dehydrogenase 405 U/L (313-618); Potassium 3.8 mmol/L (3.4-5.1); Sodium 134 mmol/L (137-145); Total Protein 6.4 g/dL (6.3-8.2); Uric Acid 4.3 mg/dL (2.5-6.2)
[2020-11-07 12:59] LABS: PTT Partial Thromboplastin Tim 28 SECONDS (26.4-36.2)
--- NOTE | 2020-11-07 13:20 | P.HPOB_ITS ---
OB HPI Date/Time Date of admission: 11/07/20 Date Patient Seen: 11/07/20 Time Patient Seen: 11:30 History of Present Condition Chief complaint: NST : 3 Para: 2 Estimated Date of Delivery: 11/20/20 Estimated Gestational Age (weeks): 38 Narrative: Chandu Aviles is a 29 year old @38+1 with a history of 2 pr ior CS, preeclampsia without severe features, gastric banding, and anemia comanaged with hematology, presenting today with worsening episodes of intermittent contractions, decreased movement, and elevated home BPs. The patient has had episodes of contractions for approx a week, mostly at night. The contractions are closer together, more painful, and last for more time with each episode. She reports that for several hours overnight into this morning, she had q5-10 minute contractions that did not resolve with urination or rest and that included severe, sharp suprapubic and lower abdominal pain. She denies vaginal bleeding or loss of fluid, and reports that baby moved less overnight during the worst of the pain but that this has now improved somewhat. She reports episodes of dizziness yesterday and overnight, though no headaches, visual changes, or RUQ pain. Her home cuff, previously calibrated at office visits, measured high 130s/high 80s at home yesterday and this AM. She does report increased swelling, with pitting edema to her thighs. The patient's was complicated by concern for low lying placenta that resolved s/p evaluation by [facility]. The patient failed her 1 hr GTT and due to her prior gastric bypass, could not tolerate the 3 hour test, but 2 weeks of FSGs were normal. Preeclampsia labs have remained normal. The patient has an additional history of a laparoscopic cholecystectomy, but no other contributory medical, surgical, family, or social history. Indications Operative indications ( section): previous uterine surgery History of Present care: good care, initiated at week # (7), number of visits (16) and pounds weight gain (50) Dating criteria: LMP confirmed by 1st trimester US Ultrasounds: normal 1st trimester US and normal mid trimester US Obstetrical complications: none Medical complications: none Preadmission Labs Blood type: O (+) positive -: Antibody screen: negative, HBsAG: negative, HIV: negative and RPR/VDLR: negative -: Chlamydia screen: not detected and Gonorrhea screen: not detected -: Rubella: immune and Varicella: immune Cell-free DNA: WNL Urine: no growth 1 hr GTT: 157 Prior (ies) History: G1: 11/20/08, 36 weeks, pCS, labor, F, 6#1 G2: 03/26/16, 37 weeks, preeclampsia without severe features, rCS, F, 8#11 Evaluation Evaluation Baseline heart rate: 135 Variability: Average (6-10) monitor accelerations: Present monitor decelerations: Late Uterine Contraction Intensity: Mild Category of Tracing: Reactive Status: Category ll Cervical dilation (cm): 1 Cervical effacement (%): 50 station: 0 Laboratory results: Laboratory Tests 11/07/20 11/07/20 11/07/20 11:35 12:13 12:13 WBC RBC Hgb Hct MCV MCH MCHC RDW Plt Count Neut % (Auto) Lymph % (Auto) [place] % (Auto) Eos % (Auto) Baso % (Auto) Neut # (Auto) Lymph # (Auto) [place] # (Auto) Eos # (Auto) Baso # (Auto) PT 11.5 INR 1.0 APTT 28 Sodium Potassium Chloride Carbon Dioxide BUN Creatinine Estimated GFR BUN/Creatinine Ratio Glucose Uric Acid Calcium Total Bilirubin AST ALT Alkaline Phosphatase Lactate Dehydrogenase Total Protein Albumin Globulin Albumin/Globulin Ratio U Random Total Protein 17 H Urine Creatinine 326.6 Protein/Creatinin Ratio 0.05 Blood Type Antibody Screen 11/07/20 11/07/20 11/07/20 12:13 12:13 12:13 WBC 6.2 RBC 3.35 L Hgb 8.7 L Hct 26.8 L MCV 80.0 MCH 25.9 L MCHC 32.4 RDW 16.8 H Plt Count 162 Neut % (Auto) 79.2 H Lymph % (Auto) 15.0 L [place] % (Auto) 5.1 Eos % (Auto) 0.4 L Baso % (Auto) 0.3 Neut # (Auto) 4900 Lymph # (Auto) 900 L [place] # (Auto) 300 Eos # (Auto) 0 Baso # (Auto) 0 PT INR APTT Sodium 134 L Potassium 3.8 Chloride 106 Carbon Dioxide 24 BUN 9 Creatinine 0.57 Estimated GFR > 60.0 BUN/Creatinine Ratio 15.8 Glucose 78 Uric Acid 4.3 Calcium 8.4 Total Bilirubin 0.2 AST 33 ALT 23 Alkaline Phosphatase 138 H Lactate Dehydrogenase 405 Total Protein 6.4 Albumin 3.3 L Globulin 3.1 Albumin/Globulin Ratio 1.1 U Random Total Protein Urine Creatinine Protein/Creatinin Ratio Blood Type O Positive Antibody Screen Negative Comments: Patient with cat 1 EFM on admission, episodic lates and variables just prior to OR. [facility] Medical History Anxiety ASCUS (atypical squamous cells of undetermined significance) on gynecologic Papanicolaou smear complicating , antepartum (~2005) Excess skin of abdominal wall Heavy menstrual period HPV (human papilloma virus) infection (~2005) Irregular menstrual cycle Morbid obesity Pelvic somatic dysfunction Preeclampsia delivery (~11/20/08) Sacral region somatic dysfunction Sleep apnea Sprain, symphysis pubis Surgical History Anesthesia H/O bariatric surgery (~09/02/17) History of laparoscopic cholecystectomy (~12/19/08) History of primary section (~11/20/08) S/P repeat low transverse (~03/26/16) Family History Mother Diabetes mellitus Hypertension CVA (cerebral vascular accident) Depression Anxiety Fibromyalgia Myocardial infarction Father Alcohol abuse Myocardial infarction Hypertension Grandfather Enlarged heart History of heart disease Grandmother Diabetes mellitus Anxiety Hypertension Grandfather No problems noted. Grandmother Dementia Schizophrenia Mental health disorder Family/Other Cervical cancer Family/Other Breast cancer Sister Depression Mental health disorder Social History marital status: number of children: 4 household members: spouse and children pets and animals: Yes (X 1 dog : pitbull) education level: college (Ass. Degree enrolled at [employer]. 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: No Smoking Status: Never smoker second hand exposure: No alcohol intake: former (pre- : social ) substance use type: does not use Meds Home Medications and Allergies Home Medications Medication Instructions Recorded Confirmed Type prenat.vits,lulu,pbb-smhd-nncgx 1 tab PO DAILY 03/27/20 11/05/20 History aspirin 81 mg PO DAILY 07/18/20 11/05/20 History diphenhydramine HCl [Unisom 50 mg PO DAILY 07/18/20 11/05/20 History SleepGels] pyridoxine (vitamin B6) [Vitamin 100 mg PO DAILY 07/18/20 11/05/20 History B-6] Disability Parking Placard See Rx Instructions .ROUTE 09/18/20 11/05/20 Rx -Temporary .COMPLEX #1 ea blood-glucose meter #1 ea 09/18/20 11/05/20 Rx lancets 30 gauge and blood glucose #100 ea 09/18/20 11/05/20 Rx strips combo pack ondansetron 4 mg disintegrating 4 mg PO Q8H PRN #30 tab 10/04/20 11/05/20 Rx tablet ferrous sulfate 325 mg PO DAILY #100 tab 10/14/20 11/05/20 Rx cefdinir 300 mg capsule 300 mg PO BID #10 cap 10/28/20 11/05/20 Rx Allergies Allergy/AdvReac Type Severity Reaction Status Date / Time No Known Drug Allergies Allergy Verified 11/05/20 09:56 Review of Systems Constitutional Constitutional: Reports as per HPI Cardiovascular Cardiovascular: Reports system reviewed and no additional complaints, except as documented Respiratory Respiratory: Reports system reviewed and no additional complaints, except as documented Gastrointestinal Gastrointestinal: Reports as per HPI Genitourinary Genitourinary: Reports as per HPI Musculoskeletal Musculoskeletal: Reports as per HPI Neurologic Neurologic: Reports as per HPI Hematologic/Lymphatic Hematologic/Lymphatic: Reports as per HPI Exam Vital Signs (past 8 hours): 120s-150s/70s-80s Const General: cooperative, healthy appearing and other (generally uncomfortable though no acute distress) Resp Effort & Inspection: normal respiratory effort Auscultation: clear to auscultation bilaterally Cardio Rate: regular rate Rhythm: regular rhythm GI Palpation: soft and No tender External Female Exam: normal external appearance Skin General: no rashes or lesions noted Neuro Cranial Nerves: CN's II-XI intact bilaterally Extrem Other: Pitting edema in LE bilaterally, 2+ on left, 1+ on right. Calves non- tender. Objective Labs Result Diagrams: 11/07/20 12:13 11/07/20 12:13 Labs: Laboratory Results - last 24 hr 11/07/20 11/07/20 11/07/20 11:35 12:13 12:13 WBC RBC Hgb Hct MCV MCH MCHC RDW Plt Count Neut % (Auto) Lymph % (Auto) [place] % (Auto) Eos % (Auto) Baso % (Auto) Neut # (Auto) Lymph # (Auto) [place] # (Auto) Eos # (Auto) Baso # (Auto) PT 11.5 INR 1.0 APTT 28 Sodium Potassium Chloride Carbon Dioxide BUN Creatinine Estimated GFR BUN/Creatinine Ratio Glucose Uric Acid Calcium Total Bilirubin AST ALT Alkaline Phosphatase Lactate Dehydrogenase Total Protein Albumin Globulin Albumin/Globulin Ratio U Random Total Protein 17 H Urine Creatinine 326.6 Protein/Creatinin Ratio 0.05 Blood Type Antibody Screen 11/07/20 11/07/20 11/07/20 12:13 12:13 12:13 WBC 6.2 RBC 3.35 L Hgb 8.7 L Hct 26.8 L MCV 80.0 MCH 25.9 L MCHC 32.4 RDW 16.8 H Plt Count 162 Neut % (Auto) 79.2 H Lymph % (Auto) 15.0 L [place] % (Auto) 5.1 Eos % (Auto) 0.4 L Baso % (Auto) 0.3 Neut # (Auto) 4900 Lymph # (Auto) 900 L [place] # (Auto) 300 Eos # (Auto) 0 Baso # (Auto) 0 PT INR APTT Sodium 134 L Potassium 3.8 Chloride 106 Carbon Dioxide 24 BUN 9 Creatinine 0.57 Estimated GFR > 60.0 BUN/Creatinine Ratio 15.8 Glucose 78 Uric Acid 4.3 Calcium 8.4 Total Bilirubin 0.2 AST 33 ALT 23 Alkaline Phosphatase 138 H Lactate Dehydrogenase 405 Total Protein 6.4 Albumin 3.3 L Globulin 3.1 Albumin/Globulin Ratio 1.1 U Random Total Protein Urine Creatinine Protein/Creatinin Ratio Blood Type O Positive Antibody Screen Negative Assessment and Plan Assessment and Plan Assessment and Plan narrative: This patient is a 31to @ 38+1 with a scheduled repeat section and bilateral salpingectomy, presenting for evaluation for labor, preeclampsia, and decreased movement. The patient has a history of anemia with today's hgb 8.7, and given her surgical history, is high risk for both uterine rupture and for significant adhesive disease and possible hysterectomy. The patient is jinny irregularly though as often as q15, with episodic variable decelerations with these contractions. Her contractions remain irregular for now, but are increasingly painful and f requent, concerning for labor prior to her scheduled section 1 week from today. The patient also has increasing though still normal blood pressures, decreasing though still normal platelets, and increasing swelling and malaise concerning in the setting of her history of preeclampsia. We discussed at length that at this time, the patient is not in labor, does not have preeclampsia or gHTN, and has reassuring status. However, the the patient's section is likely to be high risk for complications related to adhesive disease and hemorrhage, and we discussed that I do not feel she is likely to safely remain for another week. Given the overall picture and the potential for catastrophic complications such as uterine rupture if she does go into labor, I recommended to the patient and her partner that we perform her today, while and maternal status are reassuring and adequate assistance is available in the OR in case of the above complications. We discussed the potential for short term breathing difficulties being increased before 39 weeks, but that termite treater outcomes are similar to babies born at 39 weeks. We discussed the risks of repeat section including damage to surrounding organs such as bowel and bladder, hemorrhage requiring blood transfusion, and possible hysterectomy. We reviewed the planned bilateral salpingectomy, and the patient vocalized understanding that this is permanent sterilization and desires to proceed. All questions were answered, and informed consents were signed. - CBC, PIH labs, T&S, coags - 2u pRBCs ordered - Patient to be prepped for OR urgently but not emergently
[2020-11-07] MEDS: LACTATED RINGERS 1,000 ML 100 ML IV ×3 (13:30→19:07)
[2020-11-07 15:12] LABS: COVID19 -Nasal RAPID Negative (Negative)
[2020-11-07] MEDS: CEFAZOLIN 2 GM/100 ML FROZ.PIGGY IV (16:35)
[2020-11-07] MEDS: FAMOTIDINE 20 MG/50 ML PIGGYBACK 200 MG IV (16:45)
--- NOTE | 2020-11-07 16:47 | SUR.OPER ---
Supine on Padded OR bed, head on pillow, safety belt at thigh, arms secured on padded arm boards at <90 degrees abduction. Bump under right buttock. Legs uncrossed with pillow under knees, gel pad to heels, tape over blanket to lower legs.
--- NOTE | 2020-11-07 17:01 | SUR.OPER ---
Viable baby girl delivered at 1657. Placenta delivered after at 1658. Cord blood tubes X2 and placenta given to L&D RN.
[2020-11-07] MEDS: ACETAMINOPHEN IV 1,000 MG/100 ML VIAL 400 MG IV (17:15)
--- NOTE | 2020-11-07 17:39 | PM.OP.1 ---
Operative Date/Time/Diagnoses Date of procedure: 11/07/20 Time of procedure: 16:39 Pre-op diagnosis: history of sections, early labor Post-op diagnosis: same Procedure & Clinicians Procedure: repeat section, bilateral salpingectomy Same procedure as scheduled: Yes Indications: 38 weeks gestation, history of 2x CS, early labor, desires permanent sterilization Surgeon: Vitaly Farrell Pasteurizing Machine Operator: Ailcja Buenrostro Anesthesia Type: Spinal Operative Notes Findings: Significant scar tissue throughout, especially omental adhesions to anterior abdominal wall. Normal tubes and ovaries. Female in cephalic presentation weighing 8 lb 1 oz, Apgars 9 and 9. Closure Type: primary Specimen(s): other (bilateral fallopian tubes) Estimated Blood Loss (mL): 750 Blood products transfused: none Procedure in detail: EBL: 750ccs Fluids:1100ccs UOP: 50ccs clear yellow urine Findings: Female infant in cephalic presentation, Apgars 9 and 9, weight 8 lb 1 oz, normal uterus, tubes, ovaries. Procedures: The patient was taken to the operating room where spinal anesthesia was placed and found to be adequate. She was prepped and draped in the normal sterile fashion in the dorsal supine position with a leftward tilt. A Pfannenstiel skin incision was made with a scalpel and carried through to the underlying layer of fascia. The fascia was incised in the midline and the incision extended laterally with Whitaker scissors. The superior aspect of this incision was grasped with Kathi clamps, elevated, and the underlying rectus muscles dissected off with the scalpel and with the curved Whitaker scissors. Attention was then turned to the inferior aspect of this incision which, in a similar fashion, was grasped, tented up with the Kathi clamps, and the rectus muscles dissected off with the curved Whitaker scissors. The rectus muscles were then in the midline using vitaly clamps and the curved whitaker scissors, and the peritoneum identified, tented up, and entered sharply with Metzenbaum scissors. The peritoneal incision was extended superiorly and inferiorly with good visualization of the bladder. A significant amount of scar tissue was reduced throughout. The large Radames retractor was inserted with good visualization. The vesicouterine peritoneum was identified, grasped with pickups, and entered sharply with the Metzenbaum scissors. This incision was extended laterally, and the bladder flap created digitally. The bladder blade was then reinserted and the lower uterine segment incised in transverse fashion with the scalpel. The uterine incision was bluntly extended laterally. The bladder blade was removed, and the 's head delivered atraumatically. After 1 minute 15 seconds of delayed cord clamping, the cord was clamped and cut. The nose and mouth were suctioned as needed with a bulb syringe, and the infant was handed off to awaiting pediatricians. The placenta was then removed spontaneously, and the uterus cleared of all clots and debris. The uterine incision was closed with a single layer of 0 chromic in a running, locked fashion. The uterus was carefully diverted to the patient's right, and the left fallopian tube grasped with a kathi clampand followed to the fimbriated end. This was cauterized and cut with the Thunderbeat device along the mesosalpinx to just shy of the cornua. The same procedure was performed on the patient's right, stopping 2cm lateral to the cornua due to large veins in the broad ligament. The peritoneum was closed with 3-0 Vicryl, and the fascia reapproximated with 0 Vicryl in a running fashion. The subcutaneous layer was placed with 3 0 Vicryl in an interrupted fashion and the skin was closed with 4-0 biosyn in a running fashion. The patient tolerated the procedure well sponge lap and needle counts were correct x2. 3 g of Ancef were given at commencement of the case. The patient was taken to the recovery room in stable condition. Dr. Buenrostro's presence was instrumental for retraction, assistance with reduction of adhesions, and delivery of the baby. Complications: none Post-operative Condition: stable Disposition: PACU Plan for aftercare: Routine postoperative care. VTE ppx in AM if otherwise stable.
--- NOTE | 2020-11-07 18:32 | SUR.PHASEI ---
Late entry: Dr. Farrell spoke with pt at bedside, checked fundus and amount of bleeding, no new orders, stated all was normal. Pt transferred to via bed, upon arrival c/o nausea and itchy nose. Dr Farrell again spoke with pt at bedside in room. Pt left in stable condition.
[2020-11-07] MEDS: ONDANSETRON 4 MG/2 ML INJ IV (18:57)
[2020-11-07] MEDS: CITRIC ACID/SODIUM CITRATE 15 ML SOLUTION PO (19:03)
[2020-11-07] MEDS: HYDROMORPHONE 1 MG INJ 0.5 MG IV (21:03)
[2020-11-08] MEDS: ONDANSETRON 4 MG/2 ML INJ IV (01:00)
[2020-11-08] MEDS: LACTATED RINGERS 1,000 ML 100 ML IV (03:08)
[2020-11-08 06:45] LABS: Add Manual Diff / Slide Review NO; Basophils Absolute Auto 0 /uL (0-100); Basophils Percent Auto 0.3 % (0-2); Eosinophils Absolute Auto 0 /uL (0-450); Eosinophils Percent Auto 0.1 % (2-4); Hematocrit 25.3 % (36-46); Hemoglobin 8.2 g/dL (12.0-16.0); Lymphocytes Absolute Auto 900 /uL (1100-4500); Lymphocytes Percent Auto 9.5 % (25-40); Mean Corpuscular HGB Conc 32.7 % (30-36); Mean Corpuscular Hemoglobin 26.3 PG (26-34); Mean Corpuscular Volume 80.4 fL (80-100); Monocytes Absolute Auto 400 /uL (0-900); Monocytes Percent Auto 3.9 % (3-14); Neutrophils Absolute Auto 7900 /uL (1500-7000); Neutrophils Percent Auto 86.2 % (50-75); Platelet Count 161 X10^3/uL (150-400); Red Blood Cell Count 3.14 X10^6/uL (4.0-5.2); Red Cell Distribution Width 16.7 % (11.6-14.8); White Blood Cell Count 9.1 X10^3/uL (4.5-11.0)
[2020-11-08] MEDS: DOCUSATE 250 MG CAPSULE PO (08:09)
--- NOTE | 2020-11-08 10:59 | P.PNOB_ITS ---
Subjective - OB Subjective Patient comments: no complaints, pain well controlled and tolerating diet baby status: doing well feeding status: exclusively breast feeding Narrative: This patient is a 29-year-old now para 3 status post repeat section and bilateral salpingectomy at 38 weeks after presenting with persistent uterine contractions. Date Patient Seen: 11/08/20 Time Patient Seen: 08:55 Interval history: This patient is postop day 1 status post repeat section and bilateral salpingectomy. The patient has a history of preeclampsia but has been largely normotensive overnight, with improved headache, tolerating p.o. this morning. Moderate lochia, fully has not yet been removed. No visual changes, chest pain, right upper quadrant pain, overall good pain control. Ambulating a little bit despite fully. Preeclampsia labs normal on admission. Exam Vital Signs (past 8 hours): 110s-120s/50s-70s, one 140 systolic. HR 50s-80s. Oxygen Delivery Method Room Air Const General: cooperative, healthy appearing and comfortable Resp Effort & Inspection: normal respiratory effort Auscultation: clear to auscultation bilaterally Cardio Rate: regular rate Rhythm: regular rhythm GI Inspection: incision (Covered by clean Aquacel) Palpation: soft and No tender Skin General: no rashes or lesions noted Extrem Other: 1+ lower extremity edema Objective Labs Result Diagrams: 11/08/20 06:25 11/07/20 12:13 Labs: Laboratory Results - last 24 hr 11/07/20 11/07/20 11/07/20 11:35 12:13 12:13 WBC RBC Hgb Hct MCV MCH MCHC RDW Plt Count Neut % (Auto) Lymph % (Auto) [place] % (Auto) Eos % (Auto) Baso % (Auto) Neut # (Auto) Lymph # (Auto) [place] # (Auto) Eos # (Auto) Baso # (Auto) PT 11.5 INR 1.0 APTT 28 Sodium Potassium Chloride Carbon Dioxide BUN Creatinine Estimated GFR BUN/Creatinine Ratio Glucose Uric Acid Calcium Total Bilirubin AST ALT Alkaline Phosphatase Lactate Dehydrogenase Total Protein Albumin Globulin Albumin/Globulin Ratio U Random Total Protein 17 H Urine Creatinine 326.6 Protein/Creatinin Ratio 0.05 SARS-CoV-2 (PCR) Blood Type Antibody Screen Crossmatch 11/07/20 11/07/20 11/07/20 12:13 12:13 12:13 WBC 6.2 RBC 3.35 L Hgb 8.7 L Hct 26.8 L MCV 80.0 MCH 25.9 L MCHC 32.4 RDW 16.8 H Plt Count 162 Neut % (Auto) 79.2 H Lymph % (Auto) 15.0 L [place] % (Auto) 5.1 Eos % (Auto) 0.4 L Baso % (Auto) 0.3 Neut # (Auto) 4900 Lymph # (Auto) 900 L [place] # (Auto) 300 Eos # (Auto) 0 Baso # (Auto) 0 PT INR APTT Sodium 134 L Potassium 3.8 Chloride 106 Carbon Dioxide 24 BUN 9 Creatinine 0.57 Estimated GFR > 60.0 BUN/Creatinine Ratio 15.8 Glucose 78 Uric Acid 4.3 Calcium 8.4 Total Bilirubin 0.2 AST 33 ALT 23 Alkaline Phosphatase 138 H Lactate Dehydrogenase 405 Total Protein 6.4 Albumin 3.3 L Globulin 3.1 Albumin/Globulin Ratio 1.1 U Random Total Protein Urine Creatinine Protein/Creatinin Ratio SARS-CoV-2 (PCR) Blood Type O Positive Antibody Screen Negative Crossmatch See Detail 11/07/20 11/08/20 14:45 06:25 WBC 9.1 RBC 3.14 L Hgb 8.2 L Hct 25.3 L MCV 80.4 MCH 26.3 MCHC 32.7 RDW 16.7 H Plt Count 161 Neut % (Auto) 86.2 H Lymph % (Auto) 9.5 L [place] % (Auto) 3.9 Eos % (Auto) 0.1 L Baso % (Auto) 0.3 Neut # (Auto) 7900 H Lymph # (Auto) 900 L [place] # (Auto) 400 Eos # (Auto) 0 Baso # (Auto) 0 PT INR APTT Sodium Potassium Chloride Carbon Dioxide BUN Creatinine Estimated GFR BUN/Creatinine Ratio Glucose Uric Acid Calcium Total Bilirubin AST ALT Alkaline Phosphatase Lactate Dehydrogenase Total Protein Albumin Globulin Albumin/Globulin Ratio U Random Total Protein Urine Creatinine Protein/Creatinin Ratio SARS-CoV-2 (PCR) Negative Blood Type Antibody Screen Crossmatch Assessment & Plan Plan day: 1 plan OB: routine postop care Comments: This patient is doing well approximately 14 hours after her section, meeting postoperative goals appropriately. Given the degree of oozing in her , hemoglobin, and the patient's ambulatory status, will defer Lovenox prophylaxis out of concern for ongoing bleeding and lochia. Discussed with patient, patient encouraged to ambulate, SCDs while stationary. Time Spent With Patient Time: Total time spent is greater than 50% in coordination of care (as documented) at patient's floor/unit and/or counseling patient: Time with patient: 15-24 minutes
[2020-11-08 18:49] VITALS: BP 134/71; PULSE 86; RESP 16; TEMP 36.6
[2020-11-08] MEDS: ACETAMINOPHEN 325 MG TABLET 650 MG PO (21:09)
[2020-11-08] MEDS: IBUPROFEN 600 MG TABLET PO (21:09)
[2020-11-09] MEDS: IBUPROFEN 600 MG TABLET PO ×2 (03:35→09:34)
[2020-11-09] MEDS: ACETAMINOPHEN 325 MG TABLET 650 MG PO ×2 (03:36→09:34)
[2020-11-09] MEDS: DOCUSATE 250 MG CAPSULE PO (09:34)
--- NOTE | 2020-11-09 09:48 | PM.OBDS.1 ---
Discharge Providers Provider Date of admission: 11/07/20 11:32 Discharge Date: 11/09/20 Primary care physician: Fidencio Bourgeois, RT Consults: 11/07/20 18:49 Consult to Mica Laminating Machine Feeder Routine Comment: Discharge provider: Jennyfer Salazar MD Summary Hospital Course Date Patient Seen: 11/09/20 Time Patient Seen: 09:49 Diagnoses: Prior section at 38 weeks with contractions and wish for sterilization Hospital Course: Patient underwent a repeat low-transverse section with bilateral salpingectomies on 11/07/2020. Patient is ambulatory. She has some incisional pain. She denies headaches, scotomata, epigastric pain. She is urinating well. She is passing gas. She is breast-feeding without difficulty. Peripartum Data Delivery Method: Section Procedures: Repeat low-transverse section with bilateral salpingectomy complications: none [place] 1: Gender: Female Disposition of : home Discharge Diagnosis (1) delivery delivered: Status: Acute (2) Iron deficiency anemia: Status: Acute Status at Discharge Cognitive/behavioral status at discharge: oriented Functional status at discharge: independent ambulation Overall status at discharge: patient is progressing back to baseline Time Spent with Patient Time attestation: Total time spent providing and/or coordinating discharge services: Time spent: Less than 30 minutes Objective Labs Result Diagrams: 11/08/20 06:25 11/07/20 12:13 Exam Vital Signs (past 8 hours): Blood pressure 134/71, pulse of 86, temperature 97.9? Oxygen Delivery Method Room Air Narrative Exam Narrative: Abdomen is soft, nontender. Uterus is firm, at U, appropriately tender. Dressing is clean, dry, intact. Mild lochia. Extremities without edema and nontender. Patient's blood type is O positive, she is rubella immune, she received Tdap in the 3rd trimester. Discharge Plan Discharge Plan Patient Disposition: Home Discharge orders & Medications Prescriptions: New oxycodone 5 mg tablet 5 mg PO Q6H PRN (Reason: pain) Qty: 14 RF: 0 ibuprofen 600 mg tablet 600 mg PO Q6H PRN (Reason: pain) Qty: 30 RF: 2 acetaminophen [Tylenol] 325 mg tablet 650 mg PO Q6H PRN (Reason: pain) Qty: 30 RF: 2 docusate sodium 100 mg capsule 100 mg PO BID Qty: 30 RF: 2 ferrous gluconate 324 mg (38 mg iron) tablet 324 mg PO DAILY Qty: 60 RF: 0 Continued Disability Parking Placard -Temporary See Rx Instructions .ROUTE .COMPLEX Qty: 1 RF: 0 Discontinued (DME) lancets-blood glucose strips 30 gauge combo pack See Rx Instructions .MEDSUPPLY Qty: 100 RF: 2 (DME) blood-glucose meter Misc See Rx Instructions .MEDSUPPLY Qty: 1 RF: 0 ondansetron 4 mg tablet,disintegrating 4 mg PO Q8H PRN (Reason: nausea and vomiting) Qty: 30 RF: 1 prenat.vits,lulu,onu-zysp-jewrt Tablet 1 tab PO DAILY RF: 0 Follow up/Referrals: Kalpana Farrell MD [Physician] - 1 Week (aquacel removal) Fidencio Bourgeois, RT [Primary Care Provider] - Diet/Activity/Treatments Diet: Regular Activity: Nothing in the vagina for 6 weeks. Avoid lifting more than 10 pounds for 6 weeks. If you have increasing bleeding, fevers, chills, nausea, vomiting, headaches, pain, or any other symptoms, call the office or come to the emergency department. Skin/Wound/Dressing Care Report to your healthcare provider any signs of infection, such as:: chills, fever, night sweats, increased pain, unusual drainage and unusual redness Dressing: Dressing to be removed in 1 week at office visit. Visit Report/Discharge Packet Instructions: Discharge Data Primary Care Provider: Fidencio Bourgeois
== END 2020-11-09 11:15 | disposition home or self-care (01) | DRG 785 ==
PROVIDERS: Admitting Provider Obstetrics & Gynecology; Referring Provider Obstetrics & Gynecology; Visit Provider Obstetrics & Gynecology
PROC: 10D00Z1 Extraction of Products of Conception, Low, Open Approach (ICD-10-PCS; CPT 59514; principal; 2020-11-07 17:30)
DX: O34.219 Maternal care for unspecified type scar from previous cesarean delivery (principal); Z30.2 Encounter for sterilization; Z3A.38 38 weeks gestation of pregnancy; Z37.0 Single live birth; O99.62 Diseases of the digestive system complicating childbirth; K66.0 Peritoneal adhesions (postprocedural) (postinfection); D50.9 Iron deficiency anemia, unspecified; O14.94 Unspecified pre-eclampsia, complicating childbirth; E66.01 Morbid (severe) obesity due to excess calories; Z20.822 Contact with and (suspected) exposure to COVID-19
CPT/HCPCS: 36415; 58700; 59050; 59510; 59514; 76815; 80053; 82570; 83615; 84156; 84550; 85025; 85610; 85730; 86850; 86900; 86901; 87635; C9803; G0379; J0131; J0690; J1170; J1885; J2274; J2405; J2590